=== PATIENT | female | born 1975 | race Caucasian/White ===

== ENCOUNTER → 2020-07-10 12:09 | Outpatient (CLI) | payer BC, SELFPAY ==
--- NOTE | ~2020-07-10 | MM_ITS ---
EXAMINATION: MM screening natalie BI w barry HISTORY: Screening mammogram TECHNIQUE: Craniocaudal and mediolateral oblique 3-D tomosynthesis images were obtained and synthetic 2-D images were generated. CAD analysis was submitted and interpreted. Asymmetry is noted COMPARISON: 12/2018 bilateral digital screening mammogram BREAST PARENCHYMAL COMPOSITION: There are scattered areas of fibroglandular density. FINDINGS: Right breast mammographic asymmetric densities are noted; diagnostic right mammogram is rec ommended, with ultrasound if required. There is no evidence of suspicious mass, calcification, or architectural distortion to suggest malign tracy in the left breast. There has been no suspicious interval change on the left. IMPRESSION: Right breast mammographic asymmetric densities are noted; diagnostic right mammogram is recommended, with ultrasound if required. BI-RADS Category 0: Incomplete: Needs additional imaging evaluation. Reviewed, dictated and finalized at location A. IMPRESSION: Right breast mammographic asymmetric densities are noted; diagnostic right mamm ogram is recommended, with ultrasound if required. BI-RADS Category 0: Incomplete: Needs additional imaging evaluation.
== END ==
PROVIDERS: Visit Provider Obstetrics & Gynecology
DX: Z12.31 Encounter for screening mammogram for malignant neoplasm of breast (principal); R92.8 Other abnormal and inconclusive findings on diagnostic imaging of breast
CPT/HCPCS: 77063; 77067

== ENCOUNTER → 2020-08-13 09:00 | Outpatient (CLI) | payer BC, SELFPAY ==
--- NOTE | ~2020-08-13 | MMUS_ITS ---
EXAMINATION: MM diagnostic natalie RT w barry, US breast RT limited HISTORY: Follow-up right breast asymmetry TECHNIQUE: Additional 3-D tomosynthesis images of the right breast were performed and synthetic 2-D i mages were generated. CAD analysis was submitted and interpreted. High resolution right breast ultras ound was performed. COMPARISON: Comparison to multiple prior studies sequentially, with oldest reviewed study dated 05/2018. BREAST PARENCHYMAL COMPOSITION: Breast composed of scattered areas of fibroglandular density. FINDINGS: MAMMOGRAPHIC FINDINGS: There are no suspicious masses, calcifications or architectural distortion in the right breast to sug gest malignancy. ULTRASOUND: Breast ultrasound: Multiple small cysts are identified in the right breast, largest measuring 4 mm. N o suspicious solid masses to suggest malignancy. IMPRESSION: 1. No evidence for malignancy in the right breast. 2. Routine yearly screening mammogram and regular clinical breast examination are recommended. BI-RADS Category 2: Benign finding(s). Reviewed, dictated and finalized at location A. IMPRESSION: 1. No evidence for malignancy in the right breast. 2. Routine yearly screening mammogram and regular clinical breast examination a re recommended. BI-RADS Category 2: Benign finding(s).
== END ==
PROVIDERS: PCP Family Medicine; Visit Provider Obstetrics & Gynecology
DX: R92.8 Other abnormal and inconclusive findings on diagnostic imaging of breast (principal)
CPT/HCPCS: 76642; 77061; 77065; G0279